=== PATIENT | female | born 1985 | race Caucasian/White ===

== ENCOUNTER 2019-10-19 11:07 | Emergency (ER) | payer MEDICAID ==
[~2019-10-19] VITALS: Ht 162.6 cm; Wt 63.5 kg
[2019-10-19 11:26] VITALS: BP 123/78
[2019-10-19] MEDS ORDERED: IBUPROFEN 600 MG TAB PO ONE (11:30)
[2019-10-19] MEDS ORDERED: ONDANSETRON 4 MG ODT PO ONE (11:40)
[2019-10-19] MEDS ORDERED: ONDANSETRON 4 MG TAB PO ONE (11:40)
[2019-10-19 12:15] VITALS: BP 123/78
== END 2019-10-19 12:15 | disposition home or self-care (01) ==
LOC: MED 11:07
DX: R51 Headache (principal); R11.2 Nausea with vomiting, unspecified; M79.10 Myalgia, unspecified site; Z20.828 Contact with and (suspected) exposure to other viral communicable diseases
CPT/HCPCS: 99283; Q0162; U0003

== ENCOUNTER 2020-03-21 20:07 | Emergency (ER) | payer MEDICAID ==
[~2020-03-21] VITALS: Ht 162.6 cm; Wt 63.5 kg
[2020-03-21 20:46] VITALS: BP 145/90
--- NOTE | 2020-03-21 21:00 | NUR ---
SEEN AND EXAMINED BY KAYLENE WITH ORDERS AND CARRIED OUT
--- NOTE | 2020-03-21 21:20 | NUR ---
SWAB DONE AND SENT TO LAB
[2020-03-21 21:40] VITALS: BP 145/90
--- NOTE | 2020-03-21 21:40 | NUR ---
Patient discharged with v/s stable. Written and verbal after care instructions given and explained. Patient alert, oriented and verbalized understanding of instructions. Ambulatory with steady gait. All questions addressed prior to discharge. ID band removed. Patient advised to follow up with PMD. Rx of TYLENOL . ZOFRAN given. Patient educated on indication of medication including possible reaction and side effects. Opportunity to ask questions provided and answered.
== END 2020-03-21 21:40 | disposition home or self-care (01) ==
LOC: MED 20:07
DX: M79.10 Myalgia, unspecified site (principal); Z20.828 Contact with and (suspected) exposure to other viral communicable diseases; J02.9 Acute pharyngitis, unspecified
CPT/HCPCS: 99283; U0003

== ENCOUNTER 2020-05-16 16:28 | Emergency (ER) | payer MEDICAID ==
[~2020-05-16] VITALS: Ht 162.6 cm; Wt 64.0 kg
[2020-05-16 16:33] VITALS: BP 131/92
--- NOTE | 2020-05-16 16:55 | NUR ---
35 YEAR OLD FEMALE COMPLAINS OF MID-ABDOMINAL PAIN WITH VAGINAL BLEEDING X 3 DAYS. PATIENT DESCRIBES LOCATION OF PAIN AT SITE OF [facility], INTERMITTENT, 7/10, SHARP, LOCAL. PAIN WORSE WITH MOVEMENT. PT DENIES MENSTRUATION SINCE IUD WAS PLACED 5 YEARS AGO; EXPERIENCING INTERMITTENT BLEEDING WITH PRESENCE OF BLOOD CLOTS. DENIES NAUSEA/VOMITING/DIARRHEA. AO4, BREATHING EVEN AND UNLABORED, SKIN WARM AND DRY. BED IN LOWEST POSITION, LOCKED, X1 SIDERAIL UP. PMH - DENIED NKA
[2020-05-16] MEDS ORDERED: BACITRACIN OINT 500 UNITS/GM PKT TP ONE (17:05)
[2020-05-16 17:28] LABS: BASOPHILS % (AUTO) 0.5 % (0.0-2.0); EOSINOPHILS # (AUTO) 0.4 K/uL (0-0.4); EOSINOPHILS % (AUTO) 7.5 % (0.0-4.0); HEMATOCRIT 39.1 % (36-48); HEMOGLOBIN 13.2 g/dL (12.0-16.0); LYMPHOCYTES # (AUTO) 1.5 K/uL (2.5-16.5); LYMPHOCYTES % (AUTO) 27.7 % (20.5-51.1); MEAN CORPUSCULAR HEMOGLOBIN 33 pg (27-31); MEAN CORPUSCULAR HGB CONC 34 g/dL (33-37); MONOCYTES # (AUTO) 0.6 K/uL (0.8-1.0); MONOCYTES % (AUTO) 11.2 % (1.7-9.3); NEUTROPHILS # (AUTO) 2.9 K/uL (1.8-7.7); NEUTROPHILS % (AUTO) 53.1 % (42.2-75.2); PLATELET COUNT (AUTO) 250 K/uL (140-450); RED BLOOD CELL COUNT(AUTO) 4.04 MIL/uL (4.20-5.40); RED CELL DISTRIBUTION WIDTH 12.8 % (11.6-13.7); WHITE BLOOD COUNT (AUTO) 5.5 K/uL (4.8-10.8)
[2020-05-16 17:42] LABS: ALBUMIN 4.2 g/dL (3.4-5.0); ANION GAP 11.9 (8-16); CARBON DIOXIDE 29.9 mmol/L (21-32); CREATININE 0.8 mg/dL (0.6-1.3); POTASSIUM 3.8 mmol/L (3.5-5.1); TOTAL BILIRUBIN 0.5 mg/dL (0.0-1.0)
[2020-05-16] MEDS ORDERED: LIDOCAINE/EPI 1% 1:100000 20 ML VIAL INJ ONE ×2 (17:48→17:50)
--- NOTE | 2020-05-16 18:00 | NUR ---
US AT BEDSIDE
--- NOTE | 2020-05-16 18:30 | NUR ---
PT ON BED, CALM, NO DISTRESS NOTED
--- NOTE | 2020-05-16 19:08 | NUR ---
report given to moe power. transfer of care at this point
--- NOTE | 2020-05-16 19:15 | NUR ---
RECEIVED REPORT FROM IVIS NAVARRETE FOR CONTINUITY OF CARE.
[2020-05-16 19:21] LABS: APPEARANCE,URINE CLEAR (CLEAR); BILIRUBIN,URINE NEGATIVE (NEGATIVE); BLOOD, URINE NEGATIVE (NEGATIVE); COLOR,URINE YELLOW (YELLOW); LEUKOCYTE ESTERASE ,URINE NEGATIVE (NEGATIVE); NITRITE, URINE NEGATIVE (NEGATIVE); PH,URINE 7.5 (5.0-9.0); UGLUCOSE NEGATIVE (NEGATIVE)
--- NOTE | 2020-05-16 20:10 | NUR ---
Patient discharged with v/s stable. Written and verbal after care instructions given and explained. Patient alert, oriented and verbalized understanding of instructions. Ambulatory with steady gait. All questions addressed prior to discharge. ID band removed. Patient advised to follow up with PMD. Rx of BACITRACIN & NAPROSYN given. Patient educated on indication of medication including possible reaction and side effects. Opportunity to ask questions provided and answered. Pt was instructed to follow up with PCP within 7 days for removal of jaspreet or to return to ED.
[2020-05-16 20:11] VITALS: BP 124/88
== END 2020-05-16 20:21 | disposition home or self-care (01) ==
LOC: MED 16:28
DX: S01.01XA Laceration without foreign body of scalp, initial encounter (principal); N93.8 Other specified abnormal uterine and vaginal bleeding; X58.XXXA Exposure to other specified factors, initial encounter; Y93.89 Activity, other specified; Y92.89 Other specified places as the place of occurrence of the external cause; Y99.8 Other external cause status
CPT/HCPCS: 12001; 36415; 76856; 80053; 81003; 81025; 83690; 85025; 93976; 99284; J2001; J7120

== ENCOUNTER 2020-05-24 23:20 | Emergency (ER) | payer MEDICAID ==
[~2020-05-24] VITALS: Ht 162.6 cm; Wt 64.0 kg
[2020-05-24 23:27] VITALS: BP 117/62
--- NOTE | 2020-05-24 23:34 | NUR ---
PT AMBULATED TO BED 7 WITH A STEADY GAIT.
--- NOTE | 2020-05-24 23:50 | NUR ---
35 YO BIB SELF FOR SUTURE REMOVAL. PT DENIES FEVER CHILLS NO S/S OF PURULENT DRAINAGE. ERMD MADE AWARE. WILL CONTINUE TO OBSERVE.
--- NOTE | 2020-05-25 00:03 | NUR ---
Patient discharged with v/s stable. Written and verbal after care instructions given and explained. Patient alert, oriented and verbalized understanding of instructions BY DR BRANCH. Ambulatory with steady gait. All questions addressed prior to discharge BY DR BRANCH. ID band removed. Patient advised to follow up with PMD. Patient educated on indication of medication including possible reaction and side effects. Opportunity to ask questions provided and answered MADE BY DR BRANCH
[2020-05-25 00:13] VITALS: BP 117/62
== END 2020-05-25 00:03 | disposition home or self-care (01) ==
LOC: MED 23:20
DX: S01.01XD Laceration without foreign body of scalp, subsequent encounter (principal); Z48.00 Encounter for change or removal of nonsurgical wound dressing; X58.XXXD Exposure to other specified factors, subsequent encounter
CPT/HCPCS: 99281

== ENCOUNTER 2021-01-25 23:50 | Emergency (ER) | payer MEDICAID ==
[~2021-01-25] VITALS: Ht 162.6 cm; Wt 63.5 kg
[2021-01-26 00:01] VITALS: BP 117/69
--- NOTE | 2021-01-26 00:04 | NUR ---
TO LOBBY A/W BED AMBULATORY
--- NOTE | 2021-01-26 02:01 | NUR ---
PT AMBULATED TO BED 01.
--- NOTE | 2021-01-26 02:12 | NUR ---
35 yo f bib self with c/c of lower back pain and abd pain 7 x1day. pt states her back pain started first then her abd. nonrad. denies urinary and bm changes. denies n/v/d. abd is flat and soft, bowel sounds active x4 quad. tender to touch, more sensitive on left upper and lower quads and well as entire lower abd. denies taking meds for pain. denies hx, rx and allerg lmp:iud
[2021-01-26 02:19] LABS: BASOPHILS # (AUTO) 0.1 K/uL (0.00-0.22); BASOPHILS % (AUTO) 0.4 % (0.0-2.0); EOSINOPHILS # (AUTO) 0.5 K/uL (0-0.4); HEMATOCRIT 37.7 % (36-48); HEMOGLOBIN 12.5 g/dL (12.0-16.0); LYMPHOCYTES # (AUTO) 1.6 K/uL (2.5-16.5); LYMPHOCYTES % (AUTO) 11.7 % (20.5-51.1); MEAN CORPUSCULAR HEMOGLOBIN 33 pg (27-31); MEAN CORPUSCULAR HGB CONC 33 g/dL (33-37); MEAN CORPUSCULAR VOLUME 97.7 fL (80-94); MONOCYTES % (AUTO) 7.6 % (1.7-9.3); NEUTROPHILS # (AUTO) 10.2 K/uL (1.8-7.7); NEUTROPHILS % (AUTO) 76.3 % (42.2-75.2); PLATELET COUNT (AUTO) 244 K/uL (140-450); RED BLOOD CELL COUNT(AUTO) 3.86 MIL/uL (4.20-5.40); RED CELL DISTRIBUTION WIDTH 13.1 % (11.6-13.7); WHITE BLOOD COUNT (AUTO) 13.4 K/uL (4.8-10.8)
[2021-01-26 02:20] LABS: APPEARANCE,URINE CLOUDY (CLEAR); BILIRUBIN,URINE NEGATIVE (NEGATIVE); BLOOD, URINE 1+ (NEGATIVE); COLOR,URINE YELLOW (YELLOW); LEUKOCYTE ESTERASE ,URINE 2+ (NEGATIVE); NITRITE, URINE POSITIVE (NEGATIVE); PH,URINE 6.5 (5.0-9.0); UGLUCOSE NEGATIVE (NEGATIVE)
[2021-01-26 02:28] LABS: RBC,URINE 0-5 /HPF (0-5); WBC,URINE 20-60 /HPF (0-5)
[2021-01-26 02:37] LABS: ALBUMIN 3.9 g/dL (3.4-5.0); ANION GAP 12.7 (8-16); CARBON DIOXIDE 26.4 mmol/L (21-32); CREATININE 0.6 mg/dL (0.6-1.3); POTASSIUM 4.1 mmol/L (3.5-5.1); TOTAL BILIRUBIN 0.4 mg/dL (0.0-1.0)
[2021-01-26] MEDS ORDERED: CEPH-588 PO (02:58)
[2021-01-26] MEDS ORDERED: IBUP-2213 PO (02:58)
[2021-01-26] MEDS ORDERED: cefTRIAXone 1,000 MG VIAL ONE (03:10)
[2021-01-26] MEDS ORDERED: LIDOCAINE MPF 1% 5 ML ONE (03:10)
[2021-01-26] MEDS: cefTRIAXone 1,000 MG in LIDOCAINE MPF 1% 2.1 ML IM ONE (03:16)
[2021-01-26 03:27] VITALS: BP 117/69
--- NOTE | 2021-01-26 03:27 | NUR ---
Patient discharged with v/s stable. Written and verbal after care instructions given and explained. Patient alert, oriented and verbalized understanding of instructions. Ambulatory with steady gait. All questions addressed prior to discharge. ID band removed. Patient advised to follow up with PMD. Rx of keflex and ibuprofen given. Patient educated on indication of medication including possible reaction and side effects. Opportunity to ask questions provided and answered.
== END 2021-01-26 03:27 | disposition home or self-care (01) ==
LOC: MED 23:50
DX: N39.0 Urinary tract infection, site not specified (principal); D72.829 Elevated white blood cell count, unspecified
CPT/HCPCS: 36415; 80053; 81001; 81025; 83690; 85025; 87086; 96372; 99283; J0696; J2001